=== PATIENT | female | born 1990 | race Caucasian/White ===

== ENCOUNTER 2017-07-28 20:26 | Emergency (ER) | payer OTHER ==
[~2017-07-28] VITALS: Ht 162.6 cm; Wt 102.8 kg
[~2017-07-28 20:26] MED LIST: ADDERALL20 MG PO; ALBUTEROL17 GM IH; EFFEXOR25 MG PO; FLEXERIL5 MG PO; LEXAPRO10 MG PO; LEXAPRO20 MG PO; LYRICA50 MG PO; NECON1 EAC1 PO; PRILOSEC40 MG PO; PROVENTIL,200 INHALA IH; SAVELLA100 MG PO; SEASONIQUE 01 TABLET PO; VICODIN ES 71 TABLET PO; VOLTAREN25 MG PO; VOLTAREN75 MG PO; ZANTAC150 M1 PO
[2017-07-28] MEDS ORDERED: FLEXERIL10 MG PO (22:13)
[2017-07-28 22:55] VITALS: BP 136/94
== END 2017-07-28 22:56 | disposition home or self-care (01) ==
LOC: EME 20:26
DX: M54.5 Low back pain (principal); V43.52XA Car driver injured in collision with other type car in traffic accident, initial encounter; Y92.410 Unspecified street and highway as the place of occurrence of the external cause; J45.909 Unspecified asthma, uncomplicated; F17.200 Nicotine dependence, unspecified, uncomplicated
CPT/HCPCS: 99281; 99284